=== PATIENT | female | born 1990 | race Two or more races ===

== ENCOUNTER 2024-07-05 08:33 | Emergency (ER) | payer MEDICAID, SELFPAY ==
[2024-07-05 08:39] VITALS: BP 130/83; PULSE 80; RESP 18; TEMP 36.8; O2SAT 100; BMI 24.1
--- NOTE | 2024-07-05 08:46 | XR_ITS ---
Examination: Right elbow 3 views Technique: Elbow AP, oblique, lateral 3 views Exam date and time: July 05, 2024 0954 hours INDICATIONS: Patient fell today with into the elbow, elbow pain. FINDINGS: No acute fracture No dislocation No foreign body IMPRESSION: No acute fracture.
--- NOTE | 2024-07-05 08:46 | XR_ITS ---
Examination: Forearm, right, 2 views. Technique: Forearm, AP, lateral 2 views Date and time of exam: July 05, 2024 0952 hours INDICATIONS: Patient fell today with injury to the forearm, forearm pain. FINDINGS: No acute fracture No dislocation IMPRESSION: No acute fracture
--- NOTE | 2024-07-05 09:06 | EDNOTE_ITS ---
Upper Extremity Injury RME/HPI General Chief Complaint: Extremity Injury, Upper Stated Complaint: RIGHT ELBOW PAIN POST FALL YESTERDAY Time Seen by Provider: 07/05/24 08:35 Arrival date/time: 07/05/24 08:33 33-year-old female presents the emergency department today for complaint of right elbow pain status post fall Limitations: no limitations Related Data Previous Rx's ?Medication ?Instructions ?Recorded ferrous sulfate 324 mg (65 mg 324 mg PO BID #90 tabs 0 11/11/17 iron) tablet,delayed release hydrocodone 5 mg-acetaminophen 300 1 tab PO Q6H PRN pa in #14 tabs 11/11/17 mg tablet (Vicodin) ibuprofen 800 mg tablet 800 mg PO TID PRN pain #30 t abs 11/11/17 tizanidine 4 mg tablet 4 mg PO TID PRN muscle spast icity 04/13/18 #20 tabs ondansetron 4 mg disintegrating 4 mg PO Q8H PRN nausea and 08/09/20 tablet vomiting #10 tabs ibuprofen 600 mg tablet 600 mg PO Q6H #30 tabs 07/05 Allergies Allergy/AdvReac Type Severity Reaction Status Date / Time No Known Allergies Allergy Verified 07/05/24 08:35 Review of Systems Review of Systems Systems Reviewed: All systems reviewed, normal except as documented Constitutional Constitutional: Reports system reviewed and no additional complaints, except as documented, Denies fever(s) and Denies headache(s) Eyes Eyes: Reports system reviewed and no additional complaints, except as documented and Denies blurry vision ENT Ears, Nose, Mouth, and Throat: Reports system reviewed and no additional complaints, except as documented, Denies headache(s), Denies nasal congestion and Denies nasal discharge Cardiovascular Cardiovascular: Reports system reviewed and no additional complaints, except as documented, Denies chest pain and Denies dyspnea Respiratory Respiratory: Reports system reviewed and no additional complaints, except as documented, Denies chest congestion, Denies cough and Denies dyspnea Gastrointestinal Gastrointestinal: Reports system reviewed and no additional complaints, except as documented and Denies abdominal pain Musculoskeletal Musculoskeletal: Reports system reviewed and no additional complaints, except as documented, Reports arthralgias, Denies deformity, Denies numbness, Reports stiffness and Denies tingling Integumentary/Breasts Skin/Breast: Reports system reviewed and no additional complaints, except as documented and Denies rash Neurologic Neurologic: Reports system reviewed and no additional complaints, except as documented, Reports as per HPI, Denies headache(s), Denies numbness and Denies tingling Past Medical History Past Medical History NEUROLOGIC: Negative Neurological Disorders CARDIAC: Negative Cardiac Disorders or Congestive Heart Failure RESPIRATORY: Negative Chronic Obstructive Pulmonary Disease (COPD) GASTROINTESTINAL: Negative Gastrointestinal Disorders GENITOURINARY: Negative Genitourinary Disorders or Renal Disease REPRODUCTIVE: Positive Previous Pregnancies ( hemorrhage requiring blood transfusion.) MUSCULOSKELETAL: Negative Musculoskeletal Disorders ENDOCRINE: Negative Endocrine Disorders, Diabetes Mellitus Type 1 or Diabetes Mellitus Type 2 HEMATOLOGIC: Negative Blood Disorders OTHER HISTORY: Positive Blood Transfusions (blood transfusion 2017 for po stpartum hem); Negative Autoimmune Disease Family History FAMILY HISTORY: Positive Family Cancer (mom has hx of stomach cancer); Negative Family Psychiatric Problems, Family Respiratory Disorders, Family Cardiac Disorders, Family Gastrointestinal Problems, Family Surgery or Family Anesthesia Reaction Surgical History SURGICAL: Negative Section Social History SMOKING STATUS: Never smoker SUBSTANCE USE: does not use ED Exam General Limitations: Present no limitations General appearance: Present alert and in no apparent distress Head Head exam: Present atraumatic Eye Eye exam: Present normal appearance, PERRL and EOMI ENT ENT exam: Present normal exam, normal oropharynx and mucous membranes moist Neck Neck exam: Present normal inspection, full ROM and trachea midline Chest Chest inspection: Present normal inspection and symmetric chest wall rise Respiratory Respiratory exam: Present normal lung sounds bilaterally Cardiovascular Cardiovascular exam: Present regular rate, normal rhythm and normal heart sounds Abdominal Exam Abdominal exam: Present soft and normal bowel sounds Extremities Exam Extremities exam: Present full ROM, tenderness, normal capillary refill and joint swelling Back Exam Back exam: Present normal inspection and full ROM Neurological Exam Neurological exam: Present alert, oriented X3 and CN II-XII intact Psychiatric Psychiatric exam: Present normal affect and normal mood Skin Skin exam: Present warm, dry, intact and normal color Course Quality Measures none Orders Category Date Time Status XR elbow comp RT min 3V Stat Exams 07/05/24 08:46 Completed XR forearm RT 2V Stat Exams 07/05/24 08:46 Completed Vital Signs Vital signs: Vital Signs Temperature 98.3 F 07/05/24 08:39 Pulse Rate 80 07/05/24 08:39 Respiratory Rate 18 07/05/24 08:39 Blood Pressure 130/83 07/05/24 08:39 Pulse Oximetry (%) 100 07/05/24 08:39 Oxygen Delivery Method Room Air 07/05/24 08:39 o2 sat 100% r/a wnl Extremity Injury MDM Narrative MDM Narrative:: 33-year-old female presents the emergency department today for complaint of right elbow pain status post fall On exam patient is tenderness right elbow pain worse with movement Imaging obtained no acute emergent findings noted no acute fracture noted Patient discharged home in no distress to follow-up with primary care doctor in the next 24 to 48 hours and for any worsening symptoms to return to the ER immediately Patient data External records reviewed:: [facility] previous records Clinical information provided by:: patient Social determinants that could affect healthcare access:: none Patient has the following chronic illnesses:: none How is presenting disease/condition affected by chronic disease/condition?: no chronic disease Evaluation data The following diagnostics were reviewed and interpreted by me:: radiology e xam(s) Lab and/or radiology exams considered but not ordered:: rad obtained Interpretation Summary: reviewed Medications / Prescriptions Medications or Prescriptions considered but not ordered:: given Medication administrations:: given Consultations Consultation(s) initiated? (list below): No Diagnosis Upper Extremity Injury Differential Diagnosis: other (Elbow fracture, arm pain, elbow sprain) Most likely diagnosis given after review of the tests above:: Elbow sprain Admission Indicated Admission indicated?: not indicated Admission Request Was there a request for admission?: No Disposition Plan Disposition Plan: Discharge Discharge Attestation Discharge Attestation: The patient and all family members were given an opportunity to ask questions and understood the discharge instructions. Discharge instructions specifically effects, indications for sooner follow up or return to the emergency department, and the expected course of current diagnosis. Patient condition: Stable Discharge Plan Plan Patient Disposition: HOME (Self Care) Disposition Comment: Stable Prescriptions/Referrals Prescriptions/Med Rec: New ibuprofen 600 mg tablet 600 mg PO Q6H Qty: 30 0RF No Action tizanidine 4 mg tablet 4 mg PO TID PRN (Reason: muscle spasticity) Qty: 20 0RF ondansetron 4 mg tablet,disintegrating 4 mg PO Q8H PRN (Reason: nausea and vomiting) Qty: 10 0RF ibuprofen 800 mg tablet 800 mg PO TID PRN (Reason: pain) Qty: 30 0RF hydrocodone-acetaminophen [Vicodin] 5-300 mg tablet 1 tab PO Q6H MDD 4 tabs PRN (Reason: pain) Qty: 14 0RF ferrous sulfate 324 mg (65 mg iron) tablet,delayed release (DR/EC) 324 mg PO BID Qty: 90 0RF Referrals: Eitan Villareal MD [Primary Care Provider] - 07/06/24 Problem List Clinical Impression: Arm pain, right Patient/Caregiver Discharge Instructions Education Materials: ED RICE Additional Instructions: Please follow up with your primary care doctor in the next 24-48hrs for any worsening symptoms return here immediately Print Language: Spanish Stand Alone Forms: Bianca Award Info., Work/School Release, Patient Portal Info Letter PA/RECYCLING OPERATOR Supervising Physician PA/RECYCLING OPERATOR Supervising Physician: Dr. mclean
== END 2024-07-05 09:48 | disposition home or self-care (01) ==
PROVIDERS: Emergency Provider Emergency Medicine; PCP Family Medicine
DX: S59.901A Unspecified injury of right elbow, initial encounter (principal); S59.911A Unspecified injury of right forearm, initial encounter; W19.XXXA Unspecified fall, initial encounter
CPT/HCPCS: 73080; 73090; 99283

== ENCOUNTER 2024-09-24 11:31 | Emergency (ER) | payer MEDICAID, SELFPAY ==
[2024-09-24 11:33] VITALS: BMI 23.8
[2024-09-24 11:51] VITALS: BP 115/75; PULSE 81; RESP 17; TEMP 36.9; O2SAT 99
--- NOTE | 2024-09-24 11:59 | EDNOTE_ITS ---
ED Skin Abcess FB-RME/HPI General Chief complaint: Skin/Abscess/Foreign Body Stated complaint: RASH Time Seen by Provider: 09/24/24 11:37 Arrival date/time: 09/24/24 11:31 This is a 33-year-old female that comes in with complaints of a rash has been going on for the last couple days. Patient states she has no new exposures and has been having the same routine for the past couple weeks. Patient thinks she is allergic to hay possibly. Patient has no trouble breathing has no complaints. Patient has a generalized rash to her chest arms and some to her legs. Related Data Previous Rx's ?Medication ?Instructions ?Recorded ferrous sulfate 324 mg (65 mg 324 mg PO BID #90 tabs 0 11/11/17 iron) tablet,delayed release hydrocodone 5 mg-acetaminophen 300 1 tab PO Q6H PRN pa in #14 tabs 11/11/17 mg tablet (Vicodin) ibuprofen 800 mg tablet 800 mg PO TID PRN pain #30 t abs 11/11/17 tizanidine 4 mg tablet 4 mg PO TID PRN muscle spast icity 04/13/18 #20 tabs ondansetron 4 mg disintegrating 4 mg PO Q8H PRN nausea and 08/09/20 tablet vomiting #10 tabs ibuprofen 600 mg tablet 600 mg PO Q6H #30 tabs 07/05 diphenhydramine HCl 25 mg capsule 25 mg PO TID PRN all ergic reaction 09/24/24 #30 caps famotidine 20 mg tablet (Pepcid) 20 mg PO BID #14 tabs 09/24/24 prednisone 20 mg tablet 20 mg PO QDAY #4 tabs Allergies Allergy/AdvReac Type Severity Reaction Status Date / Time No Known Allergies Allergy Verified 07/05/24 08:35 Review of Systems Review of Systems Systems Reviewed: All systems reviewed, normal except as documented Past Medical History Past Medical History NEUROLOGIC: Negative Neurological Disorders CARDIAC: Negative Cardiac Disorders or Congestive Heart Failure RESPIRATORY: Negative Chronic Obstructive Pulmonary Disease (COPD) GASTROINTESTINAL: Negative Gastrointestinal Disorders GENITOURINARY: Negative Genitourinary Disorders or Renal Disease REPRODUCTIVE: Positive Previous Pregnancies ( hemorrhage requiring blood transfusion.) MUSCULOSKELETAL: Negative Musculoskeletal Disorders ENDOCRINE: Negative Endocrine Disorders, Diabetes Mellitus Type 1 or Diabetes Mellitus Type 2 HEMATOLOGIC: Negative Blood Disorders OTHER HISTORY: Positive Blood Transfusions (blood transfusion 2017 for postpar [place] hem); Negative Autoimmune Disease Family History FAMILY HISTORY: Positive Family Cancer (mom has hx of stomach cancer); Negative Family Psychiatric Problems, Family Respiratory Disorders, Family Cardiac Disorders, Family Gastrointestinal Problems, Family Surgery or Family Anesthesia Reaction Surgical History SURGICAL: Negative Section Social History SMOKING STATUS: Never smoker SUBSTANCE USE: does not use ED Exam Narrative Physical exam: VITAL SIGNS: Reviewed. GENERAL APPEARANCE: Alert and interactive, follows commands, no acute distress, HEAD AND FACE: Non-traumatic. ENT: PERRL, conjuctiva pink and clear, eyelid no trauma, Mucous membrane moist. NECK: Supple, nontender, no nuchal rigidity. CHEST: No tenderness, no crepitus, no paradoxical movement, no retractions. LUNGS: Clear, well ventilated, symmetric, no rales, no wheezing, no rhonchi, no stridor, good breath sounds bilaterally. HEART: Regular rate, regular rhythm, no murmur, no gallops. ABDOMEN: Soft, nondistended, no guarding, nontender, no rebound, no masses, NEUROLOGICAL: Gross motor function intact sensory function intact, Appropriate for age. MUSCULOSKELETAL: low back nontender, full range of motion. EXTREMITIES: No redness no swelling no skin breakdown on bilateral foot and leg. Distal neurovascular status intact bilateral foot SKIN: Color pink, dry, generalized rash to her chest arms and some to her legs. skin slightly raised and slightly erythemic Course Quality Measures none Orders Category Date Time Status DiphenhydrAMINE INJ [Benadryl Inj] Med 09/24/24 11:59 Discontinued 50 mg IM X1 ONE Famotidine [Pepcid] Med 09/24/24 11:59 Discontinued 20 mg PO X1 ONE predniSONE Med 09/24/24 13:33 Discontinued 20 mg PO X1 ONE Vital Signs Vital signs: Vital Signs Temperature 98.5 F 09/24/24 11:51 Pulse Rate 81 09/24/24 11:51 Respiratory Rate 17 09/24/24 11:51 Blood Pressure 115/75 09/24/24 11:51 Pulse Oximetry (%) 99 09/24/24 11:51 Oxygen Delivery Method Room Air 09/24/24 11:51 Skin / Abscess / Foreign Body MDM Narrative MDM Narrative:: Patient initially given Benadryl and Pepcid. Patient's rash did not seem to get better we will give patient dose of prednisone and sent patient home on Benadryl, prednisone and Pepcid. Patient told to follow-up with primary provider in 1 to 2 days. Come back to the emergency room if symptoms change or worsen. Patient data External records reviewed:: [facility] previous records Clinical information provided by:: patient Social determinants that could affect healthcare access:: none Patient has the following chronic illnesses:: none How is presenting disease/condition affected by chronic disease/condition?: no chronic disease Evaluation data The following diagnostics were reviewed and interpreted by me:: other (specify) (none ) Lab and/or radiology exams considered but not ordered:: none Interpretation Summary: see note Medications / Prescriptions Medications or Prescriptions considered but not ordered:: none Medication administrations:: Medication Administration History Discontinued Medications Diphenhydramine HCl (Diphenhydramine Inj 50 Mg/Ml Vial) 50 mg IM X1 ONE Stop: 09/24/24 12:00 Last Admin: 09/24/24 12:34 Dose: 50 mg Documented By: Famotidine (Famotidine 20 Mg Tablet) 20 mg PO X1 ONE Stop: 09/24/24 12:00 Last Admin: 09/24/24 12:33 Dose: 20 mg Documented By: Prednisone (Prednisone 20 Mg Tablet) 20 mg PO X1 ONE Stop: 09/24/24 13:34 Last Admin: 09/24/24 13:46 Dose: 20 mg Documented By: see mar Consultations Consultation(s) initiated? (list below): No Diagnosis Skin/Abscess Differential Diagnosis: viral exanthem, urticaria, allergic reaction to drug, cellulitis and other (contact dernatitis ) Most likely diagnosis given after review of the tests above:: allergic reaction due to unknown irritant Admission Indicated Admission indicated?: not indicated Admission Request Was there a request for admission?: No Disposition Plan Disposition Plan: Discharge Discharge Attestation Discharge Attestation: The patient and all family members were given an opportunity to ask questions and understood the discharge instructions. Discharge instructions specifically effects, indications for sooner follow up or return to the emergency department, and the expected course of current diagnosis. Patient condition: Stable Discharge Plan Plan Patient Disposition: HOME (Self Care) Patient condition on transfer: Stable Prescriptions/Referrals Prescriptions/Med Rec: New famotidine [Pepcid] 20 mg tablet 20 mg PO BID Qty: 14 0RF diphenhydramine HCl 25 mg capsule 25 mg PO TID PRN (Reason: allergic reaction) Qty: 30 0RF prednisone 20 mg tablet 20 mg PO QDAY Qty: 4 0RF No Action tizanidine 4 mg tablet 4 mg PO TID PRN (Reason: muscle spasticity) Qty: 20 0RF ondansetron 4 mg tablet,disintegrating 4 mg PO Q8H PRN (Reason: nausea and vomiting) Qty: 10 0RF ibuprofen 800 mg tablet 800 mg PO TID PRN (Reason: pain) Qty: 30 0RF hydrocodone-acetaminophen [Vicodin] 5-300 mg tablet 1 tab PO Q6H MDD 4 tabs PRN (Reason: pain) Qty: 14 0RF ferrous sulfate 324 mg (65 mg iron) tablet,delayed release (DR/EC) 324 mg PO BID Qty: 90 0RF ibuprofen 600 mg tablet 600 mg PO Q6H Qty: 30 0RF Problem List Clinical Impression: Allergic reaction, Rash Patient/Caregiver Discharge Instructions Discharge Activity: activity as tolerated Education Materials: ED Medicine Reaction: Allergic Additional Instructions: Follow up with primary provider in 1-2 days. Come back to ED if symptoms change or worsen Print Language: Mongolian Stand Alone Forms: Bianca Award Info., Patient Portal Info Letter PA/LAWN CARETAKER Supervising Physician PA/LAWN CARETAKER Supervising Physician: [email or web address]
[2024-09-24] MEDS: FAMOTIDINE 20 MG TABLET PO (12:33)
== END 2024-09-24 13:50 | disposition home or self-care (01) ==
LOC: SERX 13:55
PROVIDERS: Emergency Provider Nurse Practitioner Family; PCP Nurse Practitioner Women's Health
DX: T78.40XA Allergy, unspecified, initial encounter (principal); R21 Rash and other nonspecific skin eruption
CPT/HCPCS: 96372; 99283; J1200; J7512; A9270